=== PATIENT | female | born 1985 | race African-American/Black ===

== ENCOUNTER 2020-05-31 17:10 | Emergency (ER) | payer SELFPAY ==
--- NOTE | 2020-05-31 | ECG_ITS ---
Test Reason : OD Blood Pressure : / mmHG Vent. Rate : 100 BPM Atrial Rate : 100 BPM P-R Int : 166 ms QRS Dur : 088 ms QT Int : 380 ms P-R-T Axes : 081 069 041 degrees QTc Int : 490 ms Normal sinus rhythm Nonspecific ST abnormality Possible Left atrial enlargement Left ventricular hypertrophy Abnormal ECG When compared with ECG of 06-FEB-2020 00:46, Heart rate has increased Referred By: Peggy Lares Electronically Signed By:TRISHA WANG MD
[2020-05-31 17:22] VITALS: BP 125/80; BP 139/94; PULSE 111; PULSE 70; RESP 20; TEMP 36.7; O2SAT 98; BMI 19.5
--- NOTE | 2020-05-31 17:58 | ED.OVERDOSE ---
HPI - Overdose General Chief Complaint: Overdose Stated Complaint: overdose Time Seen by Provider: 05/31/20 17:51 Source: patient and EMS Mode of arrival: EMS Limitations: no limitations History of Present Illness HPI Narrative: patient comes to the emergency room after an overdose. Patient has been seen multiple times in the emergency room for the same reason, and it is usually the same story, patient states that she uses cocaine only but her sneaks in heroin into her cocaine. At this moment, patient states she feels tired, denies any chest pain or shortness of breath no abdominal pain. Patient denies SI or HI MD complaint: accidental overdose Onset (ago): hour(s) Related Data Home Medications Medication Instructions Recorded Confirmed No Known Home Meds 05/31/20 05/31/20 Allergies Allergy/AdvReac Type Severity Reaction Status Date / Time No Known Allergies Allergy Verified 05/31/20 17:27 [No Known Allergies*] Review of Systems Review of Systems: Constitutional: No Weight loss, No Fever, No Chills, No Night Sweats, No Fatigue, No Malaise ENT/Mouth: No Hearing loss, No Ear Pain, No Nasal Congestion, No Sinus Pain, No Hoarseness, No sore throat, No Rhinorrhea, No Swallowing Difficulty Eyes: No Eye Pain, No Swelling, No Redness, No Foreign Body, No Discharge, No Vision Changes Cardiovascular: No Chest Pain, No SOB, No Dyspnea on Exertion, No Orthopnea, No Edema, No Palpitations Respiratory: No Cough, No Sputum, No Wheezing, No Smoke Exposure, No Dyspnea Gastrointestinal: No Nausea, No Vomiting, No Diarrhea, No Constipation, No abdominal Pain, No Hematochezia, No Melena Genitourinary: no irregular bleeding, No Dysuria, No Urinary Frequency, No Hematuria, No Urinary Incontinence, No Urgency, No Flank Pain, No Urinary Flow Changes, No Hesitancy Musculoskeletal: No joint pain, No Myalgias, No Joint Swelling Skin: No Skin Lesions, No rash Neuro: No Weakness, No Numbness, No Paresthesias, No Loss of Consciousness, No Dizziness, No Headache Psych: No Anxiety/Panic, No Depression, No SI/HI/AH/VH, No Social Issues, Heme/Lymph: No Bruising, No Bleeding,No Lymphadenopathy Endocrine: No Polyuria, No Polydipsia, No Temperature Intolerance [facility] Past Medical History Medical History (Updated 05/31/20 @ 23:25 by Peggy Lares MD) Drug abuse HTN (hypertension) Multiple sclerosis Social History Social History Advance Directives: No Advance Directives Information Provided: Yes Physical Exam Vital Signs and I&O and Narrative: Vital Signs and I&O: Vital Signs Temp 98.2 F 05/31/20 23:10 Pulse 79 05/31/20 23:10 Resp 18 05/31/20 23:10 BP 106/70 05/31/20 23:10 Pulse Ox 99 05/31/20 23:10 Intake & Output 05/31/20 05/31/20 06/01/20 06:59 18:59 06:59 Weight 45.359 kg Body Mass Index 19.5 Appearance: Alert. Oriented X3. No acute distress. somnolent Eyes: Pupils equal, round and reactive to light. ENT: Pharynx normal. Neck: Normal inspection. Neck supple. No lymph nodes noted. No crepitus CVS: Normal heart rate and rhythm. Pulses normal. Normal S1 and S2 Respiratory: No respiratory distress. Breath sounds normal. No Wheezing. No rales Abdomen: Soft and nontender. No rigidity. No distention. good BS x4 Skin: Skin warm and dry. Normal skin color. Normal skin turgor. Extremities: No lower extremity edema. No lower extremity edema. No Lacerations. No Rash Neuro: Oriented X 3. No motor deficit. No sensory deficit. Moving all extermities. No slurred speech. Course Reevaluation(s) Reevaluation #1: patient slept for several hours, patient did not have any chest pain or shortness of breath. Patient is now awake, alert oriented x3, ambulatory with no assistance. Patient ready for discharge Time: 23:22 MDM - Overdose ECG Data Attestation: I personally reviewed and interpreted this ECG as follows: ECG interpretation date: 05/31/20 ECG interpretation time: 18:53 Prior ECG tracings: available for review (Rate 100, QTC 490 prolonged, no NSTEMI or STEMI.) Discharge Plan Discharge Clinical Impression: Drug abuse, Drug overdose Patient Disposition: Home, Self-Care Instructions: Adult Overdose (ED) Additional Instructions: please stop using drugs. If you have any worsening symptoms, any new symptoms, please return to the emergency room or call 911 Prescriptions: No Action No Known Home Meds RF: 0
[2020-05-31 18:35] VITALS: BP 121/75; PULSE 100; RESP 14; TEMP 37.7; O2SAT 99
[2020-05-31 19:02] VITALS: BP 127/73; PULSE 96; RESP 18; TEMP 37.2
--- NOTE | 2020-05-31 20:23 | PC.NURSE ---
pt awake eating sandiwch and drinking juice. nad
[2020-05-31 23:10] VITALS: BP 106/70; PULSE 79; RESP 18; TEMP 36.8; O2SAT 99
[2020-05-31 23:42] VITALS: BP 106/70; PULSE 80; RESP 16; O2SAT 98
== END 2020-05-31 23:43 | disposition home or self-care (01) ==
PROVIDERS: Emergency Provider Emergency Medicine
DX: T40.5X1A Poisoning by cocaine, accidental (unintentional), initial encounter (principal); Y92.9 Unspecified place or not applicable; F14.10 Cocaine abuse, uncomplicated; Z71.51 Drug abuse counseling and surveillance of drug abuser
CPT/HCPCS: 93005; 99283; 99284

== ENCOUNTER 2020-08-24 23:39 | Emergency (ER) | payer OTHER, SELFPAY ==
[2020-08-24 23:43] VITALS: BMI 22.6
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
[2020-08-24 23:50] VITALS: BP 110/64; PULSE 95; RESP 18; TEMP 36.7; O2SAT 99
[2020-08-25] VITALS: PULSE 64
[2020-08-25 01:23] LABS: COVID-19 Test Negative (Negative)
[2020-08-25 01:35] LABS: Glucose Urine UA NEG (NEG); Leukocyte Esterase Urine NEG (NEG); Nitrite Urine NEG (NEG); Specific Gravity - Urine >= 1.030 (1.005-1.025); Urine Blood NEG (NEG); Urine Ketones NEG (NEG); Urine Protein 2+ MG/DL (NEG-TRACE)
[2020-08-25 01:39] LABS: Appearance Urine CLEAR; Color Urine DARK YELLOW
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
[2020-08-25 01:56] LABS: Amphetamine Screen Urine Not Detected (Not Detect); Barbiturates, Urine Not Detected (Not Detect); Benzodiazepines Screen Urine Not Detected (Not Detect); Cannabinoid Screen Urine Not Detected (Not Detect); Cocaine Screen Urine POSITIVE (Not Detect); Opiate Screen Urine POSITIVE (Not Detect); Phencyclidine Screen Urine Not Detected (Not Detect)
[2020-08-25 02:04] LABS: Bacteria Urine 1+ /LPF; Mucus Urine 2+ /LPF; Squamous Epithelial Cell Urine 1+ /LPF
[2020-08-25 02:07] LABS: UPreg QC Valid YES; Urine Pregnancy NEGATIVE (NEGATIVE)
[2020-08-25 03:49] VITALS: RESP 16
--- NOTE | 2020-08-25 06:53 | PC.NURSE ---
Patient got transfered from main ed, ambulated without gait issues, compliant with globe changer, per report patient will be evaluated by the care team for detox help, no distress reported, currently resting quietly in her bed, watching TV, will continue to monitor.
--- NOTE | 2020-08-25 07:13 | PC.NURSE ---
Report received from YASMIN Yanez. Pt awake, eating breakfast. Denies any concerns at this time.
[2020-08-25 08:00] VITALS: RESP 18
--- NOTE | 2020-08-25 09:27 | PC.NURSE ---
Pt resting, resp unlabored
--- NOTE | 2020-08-25 09:43 | PC.NURSE ---
CARE team in w/ pt.
[2020-08-25 10:00] VITALS: RESP 20
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
[2020-08-25 12:00] VITALS: BP 112/70; PULSE 89; RESP 20; TEMP 36.8
--- NOTE | 2020-08-25 12:44 | PC.NURSE ---
Pt states fanny is unlikely to withdraw- states that she uses cocaine mostly, not typically opioids.
[2020-08-25 14:00] VITALS: RESP 20
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
== END 2020-08-25 15:40 | disposition home or self-care (01) ==
PROVIDERS: Emergency Provider Emergency Medicine
DX: F11.19 Opioid abuse with unspecified opioid-induced disorder (principal); Z59.0 Homelessness; Z71.51 Drug abuse counseling and surveillance of drug abuser; F17.200 Nicotine dependence, unspecified, uncomplicated; Z71.6 Tobacco abuse counseling; Z20.828 Contact with and (suspected) exposure to other viral communicable diseases
CPT/HCPCS: 80307; 81001; 81025; 87635; 99284; 99285

== ENCOUNTER 2020-10-12 09:41 | Emergency (ER) | payer MEDICAID, SELFPAY ==
[2020-10-12 09:47] VITALS: BP 115/65; PULSE 102; RESP 18; TEMP 36.2; O2SAT 97; BMI 27.4
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
--- NOTE | 2020-10-12 10:34 | MHC.CARE ---
Pt was seen by ED provider and [facility] team consulted briefly as a social concern. Pt stated that she was not feeling well enough to speak with t/w.
== END 2020-10-12 14:38 | disposition home or self-care (01) ==
PROVIDERS: Emergency Provider Emergency Medicine
DX: F19.10 Other psychoactive substance abuse, uncomplicated (principal); T50.993A Poisoning by other drugs, medicaments and biological substances, assault, initial encounter; X58.XXXA Exposure to other specified factors, initial encounter; I10 Essential (primary) hypertension; G35 Multiple sclerosis; F17.200 Nicotine dependence, unspecified, uncomplicated
CPT/HCPCS: 99283